=== PATIENT | female | born 1990 | race Caucasian/White ===

== ENCOUNTER 2016-11-23 12:02 | Emergency (ER) | payer OTHER ==
[~2016-11-23] VITALS: Ht 139.7 cm; Wt 66.0 kg
[2016-11-23] MEDS ORDERED: MOTRIN800 MG PO (14:28)
[2016-11-23] MEDS ORDERED: ZOFRAN ODT4 MG PO (14:28)
[2016-11-23 14:39] VITALS: BP 124/76
== END 2016-11-23 14:43 | disposition home or self-care (01) ==
LOC: EME 12:02
DX: G43.519 Persistent migraine aura without cerebral infarction, intractable, without status migrainosus (principal)
CPT/HCPCS: 70450; 99281; 99283